=== PATIENT | male | born 1995 | race Caucasian/White ===

== ENCOUNTER 2017-04-23 14:19 | Emergency (ER) | payer BC ==
[2017-04-23 14:42] VITALS: BP 159/73; PULSE 70; TEMP 99.3; BMI 24.3
[2017-04-23] MEDS ORDERED: DIPHTH,PERTUSS(ACELL),TET 0.5 ML DISP.SYRIN IM ONE (14:43)
--- NOTE | 2017-04-23 14:43 | PDOC ---
History of Present Illness <Laurie Monge - Last Filed: 04/23/17 14:37> - History of Present Illness Initial Comments: 04/23/17 14:50 The patient is a 21 year old male, with no significant past medical history, who presents to the emergency department s/p head trauma. Patient was loading furniture on a truck when a sofa fell and hit him on his head. He had a mild headache that was resolved with aleve around 30 minutes ago. He is not sure when his last tetanus shot was. He denies any recent nausea, vomiting, or dizziness. He denies LOC. Allergies: NKA <Ruchi Headley - Last Filed: 04/23/17 14:51> - General Chief Complaint: Pain, Acute Stated Complaint: hit in head Time Seen by Provider: 04/23/17 14:32 Past History - Past Medical History Other medical history: denies - Suicide/Smoking/Psychosocial Hx Smoking History: Never smoked Hx Alcohol Use: No Drug/Substance Use Hx: No Substance Use Type: None <Laurie Monge - Last Filed: 04/23/17 14:37> <Ruchi Headley - Last Filed: 04/23/17 14:51> - Past Medical History Allergies/Adverse Reactions: Allergies Allergy/AdvReac Type Severity Reaction Status Date / Time No Known Allergies Allergy Verified 04/23/17 14:20 Home Medications: Ambulatory Orders No Home Medications 0 mg PO DAILY 07/14/13 Review of Systems - Review of Systems Comments:: 04/23/17 14:50 GENERAL/CONSTITUTIONAL: No fever or chills. No weakness. HEAD, EYES, EARS, NOSE AND THROAT: No change in vision. No ear pain or discharge. No sore throat. GASTROINTESTINAL: No nausea, vomiting, diarrhea or constipation. GENITOURINARY: No dysuria, frequency, or change in urination. CARDIOVASCULAR: No chest pain or shortness of breath. RESPIRATORY: No cough, wheezing, or hemoptysis. MUSCULOSKELETAL: No joint or muscle swelling or pain. No neck or back pain. SKIN: + superficial abrasion on right temporal lobe + superficial lacerations to knuckles. NEUROLOGIC: +headache. No vertigo, loss of consciousness, or change in strength/ sensation. ENDOCRINE: No increased thirst. No abnormal weight change. HEMATOLOGIC/LYMPHATIC: No anemia, easy bleeding, or history of blood clots. ALLERGIC/IMMUNOLOGIC: No hives or skin allergy. <Ruchi Headley - Last Filed: 04/23/17 14:51> *Physical Exam - Vital Signs Last Vital Signs Temp Pulse Resp BP Pulse Ox 99.3 F 70 18 159/73 100 04/23/17 14:19 04/23/17 14:19 04/23/17 14:19 04/23/17 14:19 04/23/17 14:19 <Laurie Monge - Last Filed: 04/23/17 14:37> - Vital Signs Last Vital Signs Temp Pulse Resp BP Pulse Ox 99.3 F 70 18 159/73 100 04/23/17 14:19 04/23/17 14:19 04/23/17 14:19 04/23/17 14:19 04/23/17 14:19 - Physical Exam Comments: 04/23/17 14:50 GENERAL: Awake, alert, and fully oriented, in no acute distress HEAD: Superficial abrasion to right temporal area. No palpable step off no hematoma,Superficial abrasion to right lateral scalp. EYES: PERRLA, EOMI, sclera anicteric, conjunctiva clear ENT: Auricles normal inspection, nares patent, Moist mucosa NECK: No midline neck tenderness. Normal ROM, supple, no lymphadenopathy, JVD, or masses LUNGS: Breath sounds equal, clear to auscultation bilaterally. No wheezes, and no crackles HEART: Regular rate and rhythm, normal S1 and S2, no murmurs, rubs or gallops ABDOMEN: Soft, nontender, normoactive bowel sounds. No guarding, no rebound. No masses EXTREMITIES: Non tender, FROM, atraumatic, no edema. No clubbing or cyanosis. No cords. NEUROLOGICAL: GCS 15. 5/5 strength in all four extremities. Normal speech SKIN: Superficial abrasion to right lateral scalp. Superficial knuckle lacerations bilaterally. Warm, Dry, normal turgor <Ruchi Headley - Last Filed: 04/23/17 14:51> ED Treatment Course - Medications Given in the ED: ED Medications Discontinued Medications Generic Name Dose Route Start Last Admin Trade Name Freq PRN Reason Stop Dose Admin Diphtheria/Tetanus/Acell Pertussis 0.5 ml 04/23/17 14:43 04/23/17 14:47 Boostrix - IM 04/23/17 14:44 0.5 ml .ONCE ONE Administration <Ruchi Healdey - Last Filed: 04/23/17 14:51> Medical Decision Making - Medical Decision Making 04/23/17 14:37 s/p head trauma while moving furniture. couch fell on his head. sustained abrasion. no loc no n/v mild headache resolved with aleve. took aleve 25 min prior to arrive. happened earlier today. last tetanus is unknown. on exam awake alert head with superficial abrasion right lateral scalp. no hematoma. nomildline spinal tenderness. lungs clear. heart rrr nomrg. abd soft nt nd. ext wwp. atraumatic. skin abrasion right scalp, knuckles bilat hands. nuer GCS 15. 5/5 al four ext. gait normal. plan : d/w pt regarding risk benefit of ct. no indication for ct head at this time. tetanus. pain control. declined further medication. and dc home. <Laurie Monge - Last Filed: 04/23/17 14:37> *DC/Admit/Observation/Transfer - Discharge Dispostion Admit: No <Laurie Monge - Last Filed: 04/23/17 14:37> - Attestations Scribe Attestion: 04/23/17 14:50 Documentation prepared by Ruchi Headley, acting as remote medical coder for Laurie Monge MD. <Ruchi Headley - Last Filed: 04/23/17 14:51> Diagnosis at time of Disposition: Abrasion, scalp without infection, Head trauma - Discharge Dispostion Condition at time of disposition: Stable - Patient Instructions Printed Discharge Instructions: DI for Closed Head Injury, DI for Abrasion Additional Instructions: you were given a tetanus shot today. you are good for five years. take ibuprofen 400 mg every 8 hours as needed for pain. take with food. for abrasion on scalp and hands you can apply bacitracin topical ointment. return to emergency room immediately for nausea vomiting, confusion, severe headache. or any concerns. follow up with your regular doctor as needed.
== END 2017-04-23 14:48 | disposition home or self-care (01) ==
LOC: FER 14:19
PROC: 3E0234Z Introduction of Serum, Toxoid and Vaccine into Muscle, Percutaneous Approach (ICD-10-PCS; principal; 2017-04-23)
DX: S09.90XA Unspecified injury of head, initial encounter (principal); W20.8XXA Other cause of strike by thrown, projected or falling object, initial encounter; Y93.89 Activity, other specified; Y92.9 Unspecified place or not applicable
CPT/HCPCS: 90715; 99281-25